=== PATIENT | female | born 1945 | race Two or more races ===

== ENCOUNTER 2022-11-25 13:03 | Emergency (ER) | payer OTHER ==
[~2022-11-25] VITALS: Ht 154.9 cm; Wt 60.8 kg
[~2022-11-25 13:03] MED LIST: CLONAZEPAM1 MG; DIOVAN HCT 320/1 TAB; NORVASC10 MG; PROVENTIL3 ML/2.5 M IH; PROZAC40 MG; SYMBICORT 16010.2 GM; TUSSI PRES-B L120 M1 PO
[2022-11-25] MEDS ORDERED: FENOFIBRATE160 MG PO (14:05)
[2022-11-25] MEDS ORDERED: VITAMIN D3250 MCG PO (14:05)
[2022-11-25] MEDS ORDERED: LOSARTAN POTAS100 MG PO (14:05)
[2022-11-25] MEDS ORDERED: DILTIAZEM 24HR180 MG PO (14:05)
[2022-11-25] MEDS ORDERED: SYNTHROID50 MCG PO (14:06)
== END 2022-11-25 16:50 | disposition home or self-care (01) ==
LOC: ER 13:03
DX: I10 Essential (primary) hypertension (principal); I49.9 Cardiac arrhythmia, unspecified; E03.9 Hypothyroidism, unspecified; E11.9 Type 2 diabetes mellitus without complications

== ENCOUNTER 2024-04-02 14:52 | Emergency (ER) | payer OTHER ==
[~2024-04-02] VITALS: Ht 162.6 cm; Wt 53.1 kg
[~2024-04-02 14:52] MED LIST changes: +AMLODIPINE-OLM1 EAC2; +AZELASTINE137 MCG/0.; +CRESTOR5 MG; +DILTIAZEM 24HR180 MG PO; +FENOFIBRATE160 MG PO; +GRALISE600 MG; +INTEGRA F CAPS1 EACH; +LOSARTAN POTAS100 MG PO; +SYNTHROID50 MCG PO; +VITAMIN D3250 MCG PO
[2024-04-02] MEDS ORDERED: ACETAMINOPHEN 500 MG GEL..CAP PO ONE (17:45)
[2024-04-02 17:50] LABS: HEMATOCRIT 34.7 % (36.0-45.00); MEAN CELL VOLUME 89.2 fL (80.00-100.00); MEAN CORPUSCULAR HEMOGLOBIN 30.8 pg (27.00-32.0); MEAN CORPUSCULAR HGB CONC 34.6 g/dl (32.0-36.0); PLATELET COUNT 287 K/uL (150-450); RED BLOOD COUNT 3.89 M/uL (4.00-6.00); RED CELL DISTRIBUTION WIDTH 13.3 % (11.5-14.5)
[2024-04-02 18:11] LABS: CALCIUM 9.9 mg/dL (8.5-10.1); CREATININE SERUM 1.03 mg/dL (0.55-1.02); GFR 51.82; POTASSIUM 3.92 mEq/L (3.5-5.1)
[2024-04-02 18:24] LABS: PH,URINE 6.5 (5.0-8.0); URINE APPEARANCE Clear; URINE BILIRRUBIN Negative (NEGATIVE); URINE BLOOD Trace; URINE COLOR Dark Yellow; URINE GLUCOSE Negative (NEGATIVE); URINE LEUKOCYTE Moderate; URINE NITRATE Negative; URINE PROTEIN Negative (NEGATIVE); URINE UROBILINOGEN 0.2 E.U./dl
[2024-04-02 18:27] LABS: URINE BACTERIA 113.3 uL (0.0-1933); URINE EPITHELIAL CELLS 7.4 uL (0.0-38.8); URINE RBC 44.4 uL (0.0-20.8); URINE WBC 180.6 uL (0.0-23.2)
[2024-04-02] MEDS ORDERED: NORFLEX100MG PO (19:56)
[2024-04-02] MEDS ORDERED: MACROBID 100 M100 MG PO (19:56)
== END 2024-04-02 20:12 | disposition home or self-care (01) ==
LOC: ER 14:52
PROVIDERS: Nurse Practitioner Family
DX: R53.81 Other malaise (principal); M62.830 Muscle spasm of back; Z20.822 Contact with and (suspected) exposure to COVID-19; I10 Essential (primary) hypertension; E03.8 Other specified hypothyroidism

== ENCOUNTER 2024-04-18 10:49 | Outpatient (CLI) | payer OTHER ==
[~2024-04-18 10:49] MED LIST changes: +MACROBID 100 M100 MG PO; +NORFLEX100MG PO
== END 2024-04-18 11:02 | disposition home or self-care (01) ==
LOC: MRI 10:49
PROVIDERS: ATTEND Internal Medicine
DX: M54.9 Dorsalgia, unspecified (principal); R53.1 Weakness
CPT/HCPCS: 72146; 72148

== ENCOUNTER 2024-05-14 08:35 | Emergency (ER) | payer OTHER ==
[~2024-05-14] VITALS: Ht 162.6 cm; Wt 49.9 kg
[~2024-05-14 08:35] MED LIST changes: +NABUMETONE500 MG PO
[2024-05-14] MEDS ORDERED: ONDANSETRON HCL 2 MG/ML VIAL ONE (09:23)
[2024-05-14] MEDS ORDERED: ONDANSETRON HCL 2 MG/ML VIAL IV ONE (09:30)
[2024-05-14] MEDS ORDERED: CLONAZEPAM 1 MG TABLET PO ONE (09:30)
[2024-05-14] MEDS ORDERED: SODIUM CHLORIDE 0.45 % 500 ML IV SCH (09:30)
== END 2024-05-14 18:23 | disposition home or self-care (01) ==
LOC: ER 08:35
DX: K29.70 Gastritis, unspecified, without bleeding (principal); F41.9 Anxiety disorder, unspecified; E03.8 Other specified hypothyroidism
CPT/HCPCS: 96365; 99282; J2405

== ENCOUNTER → 2025-07-10 | Emergency (ER) | payer OTHER ==
[~2025-07-10] VITALS: Ht 165.1 cm; Wt 56.2 kg
[~2025-07-10] MED LIST changes: +BUPROPION XL150 MG PO; +EZETIMIBE10 MG PO; +MAXIMUM D3325 MCG PO; +MELOXICAM15 MG PO; +ROSUVASTATIN CA40 MG PO; +VITAMIN B12500 MCG PO
== END | disposition left against medical advice (07) ==
LOC: ER 12:51
DX: Z53.21 Procedure and treatment not carried out due to patient leaving prior to being seen by health care provider (principal)